=== PATIENT | female | born 1945 | race Caucasian/White ===

== ENCOUNTER → 2021-01-23 12:23 | Outpatient (CLI) | payer MEDICARE, SELFPAY ==
--- NOTE | ~2021-01-23 | MM_ITS ---
EXAMINATION: MM screening noé BI w kale HISTORY: Screening mammogram TECHNIQUE: Craniocaudal and mediolateral oblique 3-D tomosynthesis images were obtained and synthetic 2-D images were generated. CAD analysis was submitted and interpreted. COMPARISON: 08/03/2018, 07/25/2016, 07/23/2015 bilateral digital screening mammogram examinations BREAST PARENCHYMAL COMPOSITION: The breasts are heterogeneously dense, which may obscure small masses . FINDINGS: There is no evidence of suspicious mass, calcification, or architectural distortion to sugg est malignancy in either breast. There has been no suspicious interval change. IMPRESSION: 1. No mammographic evidence of malignancy. 2. Recommend routine screening mammography in one year. BI-RADS Category 1: Negative Reviewed, dictated and finalized at location A.
--- NOTE | ~2021-01-23 | DEXA_ITS ---
Bone Density Report Name: Mary Jane Malhotra Age: 75 Sex: Female Ethnicity: White Date of : 1945 Indication: postmenopausal osteoporosis; parental hip fracture; height loss; prior fracture; hysterectomy; Referring Provider: Kayli Ha Study: Bone densitometry was performed. Exam Date: January 23, 2021 Accession number: [id number] Bone Density: Region BMD T-score Z-score Classification AP Spine (L1-L4) 0.813 -2.1 0.2 Osteopenia Femoral Neck (Left) 0.544 -2.8 -0.7 Osteoporosis Total Hip (Left) 0.619 -2.6 -0.9 Osteoporosis Femoral Neck (Right) 0.515 -3.0 -1.0 Osteoporosis Total Hip (Right) 0.569 -3.1 -1.3 Osteoporosis Total Hip Mean 0.594 -2.9 -1.1 Osteoporosis World Health Organization criteria for BMD impression classify patients as: Normal (T-score at or above -1.0), Osteopenia (T-score between -1.0 and -2.5), or Osteoporosis (T-score at or below -2.5). 10-year Fracture Risk: FRAX not reported because: Some T-score for Spine Total or Hip Total or Femoral Neck at or below -2.5 Previous Exams: Region Exam Age BMD T-score BMD Change BMD Change Date g/cm2 vs Baseline vs Previous AP Spine(L1-L4) 01/23/2021 75 0.813 -2.1 0.028* 0.007 08/03/2018 73 0.806 -2.2 0.020 -0.017 07/25/2016 71 0.823 -2.0 0.037* 0.037* 10/06/2013 68 0.786 -2.4 Total Hip(Left) 01/23/2021 75 0.619 -2.6 0.003 0.008 08/03/2018 73 0.611 -2.7 -0.005 -0.039* 07/25/2016 71 0.650 -2.4 0.034* 0.034* 10/06/2013 68 0.616 -2.7 Total Hip(Right) 01/23/2021 75 0.569 -3.1 -0.049* -0.027 08/03/2018 73 0.596 -2.8 -0.022 -0.022 07/25/2016 71 0.618 -2.7 -0.001 -0.001 10/06/2013 68 0.619 -2.7 *Denotes significance at 95% confidence level, LSC for AP Spine = 0.022 g/cm2, LSC for Total Hip = 0.027 g/cm2 Clinical Information Provided by Patient: Has had a low trauma fracture Parent has had a hip fracture Has used the following medications: Vitamin D, Calcium Has the following medical conditions: Hysterectomy Patient maximum height was 66 Menopause Age: 53 No regular weight bearing exercise Drinks caffeinated beverages Onset of menses at age 13 Number of children 2 Impression: The patient has established osteoporosis, based on the Right Total Hip T-score and the existence of a prior
== END ==
PROVIDERS: Visit Provider Nurse Practitioner
DX: Z12.31 Encounter for screening mammogram for malignant neoplasm of breast (principal); Z78.0 Asymptomatic menopausal state; M85.88 Other specified disorders of bone density and structure, other site; M81.0 Age-related osteoporosis without current pathological fracture
CPT/HCPCS: 77063; 77067; 77080

== ENCOUNTER → 2022-05-20 13:21 | Outpatient (CLI) | payer MEDICARE, SELFPAY ==
--- NOTE | ~2022-05-20 | MM_ITS ---
EXAMINATION: MM screening noé BI w kale HISTORY: Screening mammogram, family history of breast cancer in her mother and daughter. TECHNIQUE: Craniocaudal and mediolateral oblique 3-D tomosynthesis images were obtained and synthetic 2-D images were generated. CAD analysis was submitted and interpreted. COMPARISON: 01/23/2021, 08/03/2018, 07/25/2016 BREAST PARENCHYMAL COMPOSITION: The breasts are heterogeneously dense, which may obscure small masses . FINDINGS: No suspicious mass, calcification, or architectural distortion are identified in either raquel ast to suggest malignancy. There has been no suspicious interval change. IMPRESSION: 1. No mammographic evidence of malignancy. 2. Recommend routine screening mammography in one year. BI-RADS Category 1: Negative Reviewed, dictated and finalized at location A.
== END ==
PROVIDERS: PCP Nurse Practitioner; Visit Provider Nurse Practitioner
DX: Z12.31 Encounter for screening mammogram for malignant neoplasm of breast (principal)
CPT/HCPCS: 77063; 77067

== ENCOUNTER → 2023-07-01 10:08 | Outpatient (CLI) | payer MEDICARE, SELFPAY ==
--- NOTE | ~2023-07-01 | MM_ITS ---
EXAMINATION: MM screening noé BI w kale HISTORY: Screening mammogram, family history of breast cancer in her mother and daughter. TECHNIQUE: Craniocaudal and mediolateral oblique 3-D tomosynthesis images were obtained and synthetic 2-D images were generated. CAD analysis was submitted and interpreted. COMPARISON: Prior mammograms dating back to 07/23/2015 BREAST PARENCHYMAL COMPOSITION: The breasts are heterogeneously dense, which may obscure small masses . FINDINGS: No suspicious mass, calcification, or architectural distortion are identified in either raquel ast to suggest malignancy. There has been no suspicious interval change. IMPRESSION: 1. No mammographic evidence of malignancy. 2. Recommend routine screening mammography in one year. BI-RADS Category 1: Negative Reviewed, dictated and finalized at location A. ER OPERATOR
== END ==
PROVIDERS: PCP Nurse Practitioner; Visit Provider Nurse Practitioner
DX: Z12.31 Encounter for screening mammogram for malignant neoplasm of breast (principal)
CPT/HCPCS: 77063; 77067

== ENCOUNTER 2023-09-21 10:43 | Inpatient (IN) | payer MEDICARE, SELFPAY ==
--- NOTE | ~2023-09-21 | XR_ITS ---
EXAMINATION: XR surgery orthopedic DATE: 09/22/2023 14:55 INDICATION: Intraoperative imaging during right hip bipolar type hemiarthroplasty placement. TECHNIQUE: 4 frontal. Images were obtained during procedure performed by Dr. Herbert. Radiologist wa s not present during the procedure. COMPARISON: Right hip and pelvis radiographs dated 09/21/2023 FINDINGS: Initial image demonstrates resection of the fractured right femoral head and neck and placement of a femoral broach is in expected position within the remaining proximal right femur. Subsequent images d emonstrate a placement of a trial femoral head component as well as a cerclage wires about the intrat rochanteric femur. Subsequent image demonstrates replacement of the broach with a cemented bipolar ty pe right hip hemiarthroplasty which is near-anatomic alignment on the final image. No fractures ident ified. Portions of the pelvis are obscured by broach. Soft tissue lucency about the proximal right femur consistent with postoperative gas. IMPRESSION: 1. Bipolar type right hip hemiarthroplasty in expected position. Reviewed, dictated and finalized at location A. E REFINISHER
--- NOTE | ~2023-09-21 | XR_ITS ---
EXAMINATION: XR chest 1V portable DATE: 09/21/2023 13:14 INDICATION: Fall with hip fracture. Preoperative evaluation. TECHNIQUE: frontal view of the chest was obtained. COMPARISON: None FINDINGS: The lungs are clear with no focal airspace opacities, pulmonary edema, pleural effusion or pneumothor ax. The cardiomediastinal silhouette is normal. Mild to moderate osteoarthritis at the bilateral shou lders. IMPRESSION: 1. No acute cardiopulmonary disease. Reviewed, dictated and finalized at location A. RIKE HAMMER OPERATOR
--- NOTE | ~2023-09-21 | XR_ITS ---
EXAMINATION: XR hip RT 2V w AP pelvis INDICATION: Right hip pain, initial encounter TECHNIQUE: AP view the pelvis and two views of the right hip are obtained. COMPARISON: None available FINDINGS: There is an acute, traumatic, closed, subcapital fracture of the right femoral neck. The fe moral head is well-seated in the acetabulum. No additional fracture is identified. There is mild oste oarthritis of the hips. IMPRESSION: 1. Acute subcapital right femoral neck fracture. Reviewed, dictated and finalized at location L. ARE SUPERVISOR
[2023-09-21 10:47] VITALS: BP 148/50; PULSE 85; RESP 16; TEMP 36.9; O2SAT 97
--- NOTE | 2023-09-21 13:04 | ECG_ITS ---
Measurements Intervals [place] Rate: 81 P: 66 DE: 177 QRS: 9 QRSD: 94 T: 62 QT: 348 QTc: 404 Interpretive Statements SINUS RHYTHM NO PREVIOUS ECG AVAILABLE FOR COMPARISON Electronically Signed On 09-21-2023 13:53:23 FAMILY LIFE EDUCATOR by Ciro Wahl M.D.
--- NOTE | 2023-09-21 13:23 | ED.FALL ---
HPI - Fall General Chief Complaint: Fall Stated Complaint: Fall Time Seen by Provider: 09/21/23 11:21 History of Present Illness HPI Narrative: 78-year-old female presented emergency department for evaluation after having a ground level fall. Patient was walking her dog when the dog pulled the leash causing her to fall onto her right side. Patient did not strike her head did not have any loss of consciousness. Patient denies any other pain or injury other than her right hip. Patient did attempt to ambulate and had increased pain of the right hip. While resting in the bed with her leg elevated patient denies any pain and declined any medications for pain control. Patient denies any significant past medical history and is not taking any blood thinners. Patient does report her history of osteoporosis. Related Data Home Medications Medication Instructions Recorded Confirmed sertraline 50 mg tablet 50 mg PO DAILY 09/21/23 09/21/23 Allergies Allergy/AdvReac Type Severity Reaction Status Date / Time No Known Allergies Allergy Verified 09/21/23 11:16 Review of Systems Review of Systems: All systems reviewed & are unremarkable except as noted in HPI and below PMFSH Past Medical History Medical History (Updated 09/21/23 @ 19:29 by Genny Bentley APRN) Age related osteoporosis Anxiety GERD (gastroesophageal reflux disease) Hyperlipidemia Postmenopausal Vitamin D deficiency Family History Family History Mother Patient's mother is Father Patient's father is Social History Social History Smoking status: Never smoker Alcohol intake: current Drinks per week: 2 Substance use: never Do You Feel Safe in your Home?: Yes Lack of Transportation: No Lack of Food: Never True Current Housing: I Have Housing Concerned About Future Housing: No Difficulty Paying Gas/Electric Bills: No Difficulty Paying for Meds: No Currently Unemployed: No Education: High School Diploma/GED Difficulty w/ Childcare or Family Care: No Spiritual care concerns: No Exam Narrative: APPEARANCE: Well appearing, no pain, no distress, well-nourished. HEAD: normocephalic, atraumatic. EYES: PERRLA/EOMI, conjunctivae clear. NOSE: Normal no drainage EARS:TMS clear with good light reflex. THROAT: Pharynx clear, no exudate. NECK: Supple. No adenopathy, no masses. RESPIRATORY: Airway patent, respirations nonlabored. Clear to auscultation bilaterally, no rales, rhonchi, wheezing. CARDIOVASCULAR: Regular rate and rhythm without murmurs rubs or gallops. ABDOMINAL: Soft, nontender, nondistended, normal bowel sounds MUSCULOSKELETAL: Right hip tenderness to palpation, neurovascularly intact. NEURO: Alert. Cranial nerves II through XII intact. Grossly intact SKIN: Warm, dry. Normal Color Course Course Emergency Course: 78-year-old female presenting ED for evaluation for right hip pain after having a ground level fall. X-ray of right hip does show acute subcapital right femoral neck fracture. I discussed case with Dr. Herbert and he initially attempted to take the patient to the OR today but OR was full. Dr Herbert was willing to admit the patient as primary and hospitalist will be on as consult. Patient and family were updated on the results the workup, diagnosis the fracture plan for admission anticipated surgery. All questions concerns were addressed. Vital Signs Vital signs: Vital Signs Temperature 98.5 F 09/21/23 10:47 Pulse Rate 85 09/21/23 10:47 Respiratory Rate 16 09/21/23 10:47 Blood Pressure 148/50 H 09/21/23 10:47 Pulse Oximetry 97 09/21/23 10:47 Oxygen Delivery Room Air 09/21/23 10:47 Temperature 99.4 F 09/21/23 16:09 Pulse Rate 90 09/21/23 16:09 Respiratory Rate 19 09/21/23 16:09 Blood Pressure 159/70 H 09/21/23
[2023-09-21 13:27] VITALS: BP 152/70; PULSE 85; RESP 18; O2SAT 99
[2023-09-21 13:34] LABS: Basophils Absolute Auto 0.1 K/mm3 (0.0-0.1); Basophils Percent Auto 0.4 % (0.2-1.2); Eosinophils Absolute Auto 0.1 K/mm3 (0-0.3); Eosinophils Percent Auto 0.4 % (0-4.4); Hematocrit 42.3 % (37.0-47.0); Hemoglobin 13.7 g/dL (12.0-15.0); Immature Granulocyte Absolute 0.07 K/mm3 (0.00-0.031); Immature Granulocyte Percent A 0.5 % (0-0.5); Lymphocytes Absolute Auto 1.12 K/mm3 (0.9-3.2); Lymphocytes Percent Auto 7.3 % (18.3-44.2); Mean Corpuscular HGB Conc 32.4 g/dl (32-36); Mean Corpuscular Hemoglobin 31.4 pg (26-34); Mean Platelet Volume 9.8 fl (7.4-10.4); Monocytes Absolute Auto 0.9 K/mm3 (0.1-0.6); Monocytes Percent Auto 5.7 % (2.6-8.5); Neutrophils Absolute Auto 13.2 K/mm3 (1.3-6.7); Neutrophils Percent Auto 85.7 % (45.5-73.1); Platelet Count Result 285 k/mm3 (150-375); Red Blood Count 4.36 M/mm3 (4.2-5.4); Red Cell Distribution Width 15.3 % (11.5-14.5); White Blood Count 15.3 K/mm3 (4.5-10.0)
--- NOTE | 2023-09-21 13:34 | PM.IMHP ---
H&P: HPI History of Present Illness Date/Time: 09/21/23 13:34 Chief Complaint: Patient presents hip pain right status post fall with a femoral neck fracture. Review of Systems Musculoskeletal: Musculoskeletal: Reports arthralgias and Reports joint swelling PMFSH Past Medical History Medical History Age related osteoporosis Family History Family History Mother Patient's mother is Father Patient's father is Social History Social History (Updated 03/09/23 @ 09:21 by Neva Correa MA) Smoking status: Never smoker Alcohol intake: current Lack of Transportation: No Lack of Food: Never True Current Housing: I Have Housing Concerned About Future Housing: No Difficulty Paying Gas/Electric Bills: No Difficulty Paying for Meds: No Currently Unemployed: No Education: High School Diploma/GED Difficulty w/ Childcare or Family Care: No Meds Home Medications and Allergies Home Medications Medication Instructions Recorded Confirmed Type sertraline 50 mg tablet 50 mg PO DAILY 09/21/23 09/21/23 History Allergies Allergy/AdvReac Type Severity Reaction Status Date / Time No Known Allergies Allergy Verified 09/21/23 11:16 Vital Signs Vital Signs - 24 hr 09/21/23 10:47 09/21/23 13:27 Temperature 98.5 F Pulse Rate 85 85 Respiratory Rate 16 18 Blood Pressure 148/50 H 152/70 H Pulse Oximetry 97 99 Oxygen Delivery Room Air Exam Narrative: Patient can wiggle her toes has pain with any manipulation of her right hip. The leg is short and externally rotated. Radiology Reports: Comments: Patient: Mary Jane Malhotra : 1945 MR#: [id number] Age: 78 Loc: [facility]? ? ADM Date: 09/21/23Attending Dr: Ordering Physician: Thomas Travis MD Date of Service: 09/21/23 Procedure(s): XR hip RT 2V w AP pelvis Accession Number(s): [id number] cc: Thomas Travis MD; Kayli Ha APRN~ EXAMINATION: XR hip RT 2V w AP pelvis INDICATION: Right hip pain, initial encounter TECHNIQUE: AP view the pelvis and two views of the right hip are obtained. COMPARISON: None available FINDINGS: There is an acute, traumatic, closed, subcapital fracture of the right femoral neck. The femoral head is well-seated in the acetabulum. No additional fracture is identified. There is mild osteoarthritis of the hips. IMPRESSION: 1. Acute subcapital right femoral neck fracture. Reviewed, dictated and finalized at location L. OMER ACCOUNT COORDINATOR Hip and Pelvis X-Ray 09/21/23 H&P: Results Labs Labs: Short CBC 09/21/23 Range/Units 13:26 WBC 15.3 H (4.5-10.0) K/mm3 Hgb 13.7 (12.0-15.0) g/dL Hct 42.3 (37.0-47.0) % Plt Count 285 (150-375) k/mm3 Assessment and Plan Assessment and plan (1) Closed fracture of neck of right femur: Code(s): S72.001A - Fracture of unspecified part of neck of right femur, initial encounter for closed fracture Status: Acute Assessment and Plan: Patient is a femoral neck fracture right. There is enough shortening and angulation that I think pinning it would have a high probability of failure. Recommended bipolar endoprosthetic replacement. Will proceed per her request discussed risks benefits limitations and alternatives in detail. [facility] [place] [facility] [place]P [facility] H&P [facility] H&P: [id number] Initial Admit Mod
[2023-09-21 13:43] LABS: Alanine Aminotransferase 24 U/L (6-35); Albumin Level 4.6 g/dL (3.5-5.1); Alkaline Phosphatase 104 U/L (38-126); Anion Gap 5 mmol/L (8-16); Aspartate Amino Transferase 38 U/L (14-36); Bilirubin,Total 0.6 mg/dL (0.2-1.3); Blood Urea Nitrogen 16 mg/dL (7-17); Calcium 9.3 mg/dL (8.4-10.2); Carbon Dioxide 30 mmol/L (22-30); Chloride 102 mmol/L (98-107); Estimated Glomerular Filt Rate > 60; Glucose 110 mg/dL (65-110); Partial Thromboplastin Time 30.3 SECONDS (22.3-36.8); Potassium 3.6 mmol/L (3.4-5.0); Prothrombin Time 13.7 Seconds (11.1-14.7); Sodium 137 mmol/L (137-145)
[2023-09-21] MEDS: fentaNYL CITRATE INJ (*CRX) 100 MCG/2 ML VIAL 50 MCG IV PUSH (14:22)
[2023-09-21 15:34] VITALS: BP 139/69; PULSE 83; RESP 19; O2SAT 98
--- NOTE | 2023-09-21 16:04 | ADMGEN ---
This patient, Mary Jane Malhotra, was admitted to Virtual Bed 3rd Floor-1. Patient/family oriented to hospital policies and general routines including ID bracelet, bed and alarms, visiting hours, pain management, procedures, bathroom and other care routines, personal items, smoking policy, room service/diet, and visiting hours. Information on how to activate the Rapid Response Team has been discussed. Patient/Family are encouraged to report perceived risks to care and to ask questions if they do not understand what they are told or what they should do.
[2023-09-21 16:09] VITALS: BP 159/70; PULSE 90; RESP 19; TEMP 37.4; O2SAT 96
[2023-09-21] MEDS: HYDROcodone/acetaminophen (*CRX) 5-325 MG TABLET 2 TAB PO (17:08)
[2023-09-21] MEDS: SENNA/DOCUSATE SODIUM TABLET 2 TAB PO (17:12)
--- NOTE | 2023-09-21 19:24 | PM.IMCN ---
Assessment and Plan Assessment and plan (1) Closed fracture of neck of right femur: Code(s): S72.001A - Fracture of unspecified part of neck of right femur, initial encounter for closed fracture Status: Acute Assessment and Plan: Admitted here for surgical fixation of R subcapital fracture. Primary management by Keon ZHU. Plan for surgery tomorrow, NPO at midnight. -Bed rest -apply gel pads -use IS -neurovasc checks - see order for intervals -SCDs -urinary catheter placed -NPO at midnight -pain management -zofran PRN -monitor labs in AM - CBC and BMP. Add UA w/reflex. -bowel regimen: docusate/senna, polyethylene glycol -maintenance fluids: NS 125 mL/hr -muscle spasms - Valium 1 mg PO x1 at 10:00pm Plan Home Meds/Chronic Conditions -hold home sertraline Diet: Regular, NPO at midnight GI Prophylaxis: Famotidine DVT Prophylaxis: SCDs Lines: pIV Code Status: Full Code HPI Date of Consult Consult date: 09/21/23 Requesting Physician: Jim Herbert MD Primary Care Provider: Kayli Ha NP Consult Narrative Reason for consult: Medical Managment Narrative: Mary Jane Malhotra is a 78 year old female who presented to the ER earlier today for evaluation post-ground level fall with PMH of osteoporosis, anxiety, GERD, and vitamin-D deficiency. Patient reported she was walking her dog when her son's dog (jeffrey) pulled on the leash causing her to lose her balance. Patient fell onto her right side, no head strike, and no loss of consciousness. Nonambulatory post fall due to pain in her right hip. Denies any recent previous falls. Does not require an assistive device. Not currently on a blood thinner. No significant past medical history, does have osteoporosis. No numbness or tingling. Is currently experiencing some moderate muscle spasms in her bilateral calves. No other complaints at this time and is tolerating movement well. Initial vital signs at presentation: 99.4 F, HR 83, RR 19, 139/69, 98% on RA. Workup showed mild leukocytosis with white count of 15.3, creatinine 0.6, BUN 16, gap 5, and AST mildly elevated at 38. XR of right hip showed acute subcapital right femoral neck fracture. CXR showed no acute cardiopulmonary disease. Review of Systems Review of Systems: All systems reviewed & are unremarkable except as noted in HPI and below PMFSH Past Medical History Medical History Age related osteoporosis Anxiety GERD (gastroesophageal reflux disease) Postmenopausal Vitamin D deficiency Surgical History Surgical History History of total hysterectomy Family History Family History Mother Patient's mother is Father Patient's father is Social History Social History Smoking status: Never smoker Alcohol intake: current Drinks per week: 2 Substance use: never Do You Feel Safe in your Home?: Yes Lack of Transportation: No Lack of Food: Never True Current Housing: I Have Housing Concerned About Future Housing: No Difficulty Paying Gas/Electric Bills: No Difficulty Paying for Meds: No Currently Unemployed: No Education: High School Diploma/GED Difficulty w/ Childcare or Family Care: No Spiritual care concerns: No Meds Home Medications and Allergies Home Medications Medication Instructions Recorded Confirmed Type sertraline 50 mg tablet 50 mg PO DAILY 09/21/23 09/21/23 History Allergies Allergy/AdvReac Type Severity Reaction Status Date / Time No Known Allergies Allergy Verified 09/21/23 11:16 Vital Signs Vital Signs - 24 hr 09/21/23 10:47 09/21/23 13:27 09/21/23 15:34 Temperature 98.5 F Pulse Rate 85 85 83 Respiratory Rate 16 18 19 Bl
[2023-09-21] MEDS: FAMOTIDINE 20 MG TABLET PO (20:39)
[2023-09-21 20:47] LABS: Appearance Urine Clear (Clear); Bilirubin Urine Negative (Negative); Blood Urine Negative (Negative); Color Urine Yellow (Yellow); Glucose Urine UA Negative (Negative); Ketones Urine Trace mg/dL (Negative); Leukocyte Esterase Ur Negative LEU/UL (Negative); Nitrate Urine Negative (Negative); Protein Urine Negative (Negative); Specific Grav Ur 1.011 (1.001-1.035); Urobilinogen Urine 0.2 mg/dL (<2.0)
[2023-09-21 20:50] LABS: Add Urine Microscopic? NO
[2023-09-21] MEDS: HYDROcodone/acetaminophen (*CRX) 5-325 MG TABLET 1 TAB PO (21:09)
[2023-09-21] MEDS: diazePAM (*CRX) 2 MG TABLET 1 MG PO (21:09)
[2023-09-21 23:26] VITALS: BP 136/59; PULSE 86; RESP 20; TEMP 36.8; O2SAT 98
[2023-09-22] VITALS (17 sets, daily range): BP systolic 113–174; BP diastolic 57–104; PULSE 77–106; RESP 12–20; TEMP 36.3–37.7; O2SAT 86–100
[2023-09-22] MEDS: fentaNYL CITRATE INJ (*CRX) 100 MCG/2 ML VIAL 50 MCG IV PUSH ×2 (04:43→08:39)
[2023-09-22 06:12] LABS: Basophils Absolute Auto 0.1 K/mm3 (0.0-0.1); Basophils Percent Auto 0.6 % (0.2-1.2); Eosinophils Absolute Auto 0.3 K/mm3 (0-0.3); Eosinophils Percent Auto 3.1 % (0-4.4); Hematocrit 37.9 % (37.0-47.0); Hemoglobin 12.5 g/dL (12.0-15.0); Immature Granulocyte Absolute 0.04 K/mm3 (0.00-0.031); Immature Granulocyte Percent A 0.4 % (0-0.5); Lymphocytes Absolute Auto 1.39 K/mm3 (0.9-3.2); Lymphocytes Percent Auto 12.7 % (18.3-44.2); Mean Corpuscular Hemoglobin 31.7 pg (26-34); Mean Corpuscular Volume 96.2 fl (80-100); Mean Platelet Volume 10.2 fl (7.4-10.4); Neutrophils Absolute Auto 8.2 K/mm3 (1.3-6.7); Neutrophils Percent Auto 74.2 % (45.5-73.1); Platelet Count Result 235 k/mm3 (150-375); Red Blood Count 3.94 M/mm3 (4.2-5.4); Red Cell Distribution Width 15.2 % (11.5-14.5)
[2023-09-22 06:23] LABS: Anion Gap 4 mmol/L (8-16); Blood Urea Nitrogen 17 mg/dL (7-17); Calcium 8.6 mg/dL (8.4-10.2); Carbon Dioxide 28 mmol/L (22-30); Chloride 103 mmol/L (98-107); Estimated Glomerular Filt Rate > 60; Glucose 106 mg/dL (65-110); Potassium 3.5 mmol/L (3.4-5.0); Sodium 135 mmol/L (137-145)
--- NOTE | 2023-09-22 08:26 | PCOTNOTE ---
Pt. to have surgery for fx. today. Pt. to be seen for therapy services when medically appropriate s/p.
--- NOTE | 2023-09-22 11:45 | PC.NURSE ---
Patient off of unit for surgery
--- NOTE | 2023-09-22 12:13 | WPDHPUPDATE1 ---
History and Physical Update Update Date/Time: 09/22/23 12:13 History and Physical has been reviewed, including an updated exam of the patient. There are NO changes in the patient's condition. Risks, benefits, and alternatives have been discussed and questions answered. Patient agrees to proceed with procedure.
--- NOTE | 2023-09-22 12:19 | WPDANESEPPF ---
Anes - Initial Pre Proc Eval Procedure: Operation Date: 09/22/23 13:30 Proposed Procedures p Right Bipolar Hip Replacement - Jim Herbert MD Date/Time: 09/22/23 12:19 Surgeon: Jim Herbert MD Pre Op Diagnosis: Femoral Neck Fracture Right Patient Data Age: 78 Gender: F Height: Weight: 53.6 kg Last Vital Signs Temp 37.2 C 09/22/23 09:08 Pulse 85 09/22/23 09:08 Resp 16 09/22/23 09:08 BP 113/59 L 09/22/23 09:08 Pulse Ox 97 09/22/23 09:08 O2 Del Method Room Air 09/22/23 08:35 Allergies Allergy/AdvReac Type Severity Reaction Status Date / Time No Known Allergies Allergy Verified 09/21/23 11:16 Home Medications Medication Instructions Recorded Confirmed Type sertraline 50 mg tablet 50 mg PO DAILY 09/21/23 09/21/23 History Laboratory Tests 09/21/23 09/21/23 09/22/23 13:26 20:29 05:47 WBC 15.3 H K/mm3 11.0 H K/mm3 (4.5-10.0) (4.5-10.0) RBC 4.36 M/mm3 3.94 L M/mm3 (4.2-5.4) (4.2-5.4) Hgb 13.7 g/dL 12.5 g/dL (12.0-15.0) (12.0-15.0) Hct 42.3 % 37.9 % (37.0-47.0) (37.0-47.0) MCV 97.0 fl 96.2 fl (80-100) (80-100) MCH 31.4 pg 31.7 pg (26-34) (26-34) MCHC 32.4 g/dl 33.0 g/dl (32-36) (32-36) RDW 15.3 H % 15.2 H % (11.5-14.5) (11.5-14.5) Plt Count 285 k/mm3 235 k/mm3 (150-375) (150-375) MPV 9.8 fl 10.2 fl (7.4-10.4) (7.4-10.4) Immature Gran % (Auto) 0.5 % 0.4 % (0-0.5) (0-0.5) Neut % (Auto) 85.7 H % 74.2 H % (45.5-73.1) (45.5-73.1) Lymph % (Auto) 7.3 L % 12.7 L % (18.3-44.2) (18.3-44.2) [place] % (Auto) 5.7 % 9.0 H % (2.6-8.5) (2.6-8.5) Eos % (Auto) 0.4 % 3.1 % (0-4.4) (0-4.4) Baso % (Auto) 0.4 % 0.6 % (0.2-1.2) (0.2-1.2) Lymph # (Auto) 1.12 K/mm3 1.39 K/mm3 (0.9-3.2) (0.9-3.2) [place] # (Auto) 0.9 H K/mm3 1.0 H K/mm3 (0.1-0.6) (0.1-0.6) Eos # (Auto) 0.1 K/mm3 0.3 K/mm3 (0-0.3) (0-0.3) Baso # (Auto) 0.1 K/mm3 0.1 K/mm3 (0.0-0.1) (0.0-0.1) Abs Immat Gran (auto) 0.07 H K/mm3 0.04 H K/mm3 (0.00-0.031) (0.00-0.031) Absolute Neuts (auto) 13.2 H K/mm3 8.2 H K/mm3 (1.3-6.7) (1.3-6.7) Absolute Nucleated RBC 0.0 K/mm3 0.0 K/mm3 (0.0-0.012) (0.0-0.012) Nucleated RBC % 0.0 % 0.0 % (0.0-0.2) (0.0-0.2) PT 13.7 Seconds (11.1-14.7) INR 1.0 APTT 30.3 SECONDS (22.3-36.8) Sodium 137 mmol/L 135 L mmol/L (137-145) (137-145) Potassium 3.6 mmol/L 3.5 mmol/L (3.4-5.0) (3.4-5.0) Chloride 102 mmol/L 103 mmol/L (98-107) (98-107) Carbon Dioxide 30 mmol/L 28 mmol/L (22-30) (22-30) Anion Gap 5 L mmol/L 4 L mmol/L (8-16) (8-16) BUN 16 mg/dL 17 mg/dL (7-17) (7-17) Creatinine 0.60 L mg/dL 0.60 L mg/dL (0.7-1.0) (0.7-1.0) Estim Creat Clear Calc Not Reportable Not Reportable Estimated GFR > 60 > 60 (59 - ) (59 - ) Glucose 110 mg/dL 106 mg/dL (65-110) (65-110) Calcium 9.3 mg/dL 8.6 mg/dL (8.4-10.2) (8.4-10.2) Total Bilirubin 0.6 mg/dL (0.2-1.3) AST 38 H U/L (14-36) ALT 24 U/L (6-35) Alkaline Phosphatase 104 U/L (38-126) Total Protein 8.0 g/dL (6.3-8.2) Albumin 4.6 g/dL (3.5-5.1) Urine Color Yellow (Yellow) Urine Appearance Clear (Clear) Urine pH 7.0 (5.0-9.0) Ur Specific [place] 1.011 (1.001-1.035) Urine Protein Negative mg/dL (Negative) Urine Glucose (UA) Negative mg/dL (Negative) Urine Ketones Trace H mg/dL (Negative) Ur Blood (Man) Negative (Negative) Urine Nitrate Negative (Negative) Urine Bilirubin Negative (Negative) Urine Urobilinogen 0.2 mg/dL (<2.0) Leukocyte E
[2023-09-22] MEDS: LACTATED RINGERS 1,000 ML 30 ML IV CONT ×2 (12:24→15:11)
[2023-09-22] MEDS: ceFAZolin SODIUM 1 GM VIAL IV PUSH (13:42)
[2023-09-22] MEDS: VANCOMYCIN 1,000 MG/NS 250 ML 1,000 MG/250 ML BAG 250 MG IVPB (13:44)
[2023-09-22] MEDS: GENTAMICIN BONE CEMENT REFOBACIN 1 EACH TOPICAL (13:59)
[2023-09-22] MEDS: EPINEPHrine HCL INJ 1 MG/ML AMPUL IRRIGATION (14:16)
--- NOTE | 2023-09-22 14:49 | W.PM.PROC2 ---
Procedure Note - Detailed Date of Procedure 09/22/23 Pre-op Diagnosis Femoral Neck Fracture Right Post-op Diagnosis Same Procedure Performed Right cemented bipolar Surgeon Jim Herbert MD Bereavement Program Coordinator Dylan Anesthesia General Indications Right femoral neck fracture Description of Procedure Patient brought to operating room $8. General anesthetic was administered. She was placed with the right hip up. Longitudinal incision made, dissection carried to the fascia. The fascia split and at this point a Simms approach was used the femoral neck was found to be broken and impacted back almost to the trochanter. The the hip was dislocated femoral head removed fingerbreadth above the lesser trochanter. The femur was to broached to accept a #9. A trial reduction the femoral neck rock. This was cable and then a #[address]. A -3 head was chosen and this gave excellent stability with the 47 millimeter bipolar. Femoral head measured 47 millimeters. The wound was then closed in a layered fashion with 5. Ethibond 2. Vicryl 2-0 Vicryl and loretta. Implants Biomet Estimated Blood Loss 400 Drains No Packing No Complications Other complications (Femoral Neck Cracked) Condition Stable Disposition PACU [facility] Billing Surgery - Charge Forward: Surgery Billing (Bipolar [place] [id number])
[2023-09-22] MEDS: fentaNYL CITRATE INJ (*CRX) 100 MCG/2 ML VIAL 25 MCG IV PUSH ×4 (15:27→15:43)
[2023-09-22] MEDS: HYDROmorphone HCL INJ (*CRX) 1 MG/ML SYR 0.25 MG IV PUSH ×4 (15:53→16:14)
--- NOTE | 2023-09-22 17:09 | PM.IMPN ---
Progress Note: A&P Assessment and Plan (1) Closed fracture of neck of right femur: Code(s): S72.001A - Fracture of unspecified part of neck of right femur, initial encounter for closed fracture Status: Acute Plan 78-year-old white female with a history of osteoporosis, anxiety, GERD, vitamin-D deficiency presents after ground level fall. Hospice team consulted for medical management. 09/22/2023 underwent bipolar cemented for right femoral neck fracture. Check labs in the morning. Continue Xarelto per surgery team for DVT prophylaxis. Advanced diet as tolerated. Leukocytosis is improving. Full code. Stable. Subjective Date/time seen: 09/22/23 17:09 Interval history: No acute overnight events. She is seen just postop for right femoral neck fracture repair. She complains of pain at the right hip and she is thirsty. Review of Systems Review of Systems: All systems reviewed & are unremarkable except as noted in HPI and below (Subjective) Exam Const: General: comfortable and no acute distress Neck: Neck: supple Resp: Effort & Inspection: normal respiratory effort Auscultation: clear to auscultation bilaterally Cardio: Rate: regular rate Rhythm: regular rhythm GI: GI Palp: Yes Soft to palpation and No Tenderness to palpation present (GI) Extrem: General: no edema Other: Pulses 2+ throughout. Objective Data Vital Signs Vital Signs: Vital Signs - 24 hr 09/21/23 20:00 09/21/23 23:26 09/22/23 03:26 Temperature 98.3 F 97.8 F Pulse Rate 86 88 Respiratory Rate 20 18 Blood Pressure 136/59 L 136/61 Pulse Oximetry 98 97 Oxygen Delivery Room Air Oxygen Flow Rate 09/22/23 07:00 09/22/23 09:08 09/22/23 08:35 Temperature 98.5 F 98.9 F Pulse Rate 77 85 Respiratory Rate 20 16 Blood Pressure 129/61 113/59 L Pulse Oximetry 99 97 Oxygen Delivery Room Air Oxygen Flow Rate 09/22/23 12:06 09/22/23 15:11 09/22/23 15:25 Temperature 99.8 F H 98.6 F Pulse Rate 81 90 86 Respiratory Rate 14 12 13 Blood Pressure 117/57 L 155/77 H 137/104 H Pulse Oximetry 99 100 97 Oxygen Delivery Room Air Simple Face Mask Room Air Oxygen Flow Rate 8 09/22/23 15:40 09/22/23 15:55 09/22/23 16:10 Temperature Pulse Rate 89 91 87 Respiratory Rate 15 17 18 Blood Pressure 155/78 H 174/70 H 147/75 H Pulse Oximetry 99 100 99 Oxygen Delivery Room Air Room Air Room Air Oxygen Flow Rate 09/22/23 16:25 09/22/23 16:53 Temperature 97.3 F L Pulse Rate 84 91 Respiratory Rate 17 16 Blood Pressure 155/74 H 143/76 H Pulse Oximetry 100 92 Oxygen Delivery Room Air Oxygen Flow Rate Intake/Output Intake/Output: Intake & Output 09/19/23 09/20/23 09/21/23 09/22/23 23:59 23:59 23:59 23:59 Intake Total 180 400 Balance 180 400 Meds/Results Medications: Active Medications Generic Name Dose Route Start Last Admin Trade Name Freq PRN Reason Stop Dose Admin Acetaminophen 650 mg 09/22/23 16:31 Acetaminophen 325 Mg Tablet PO Q6H PRN Mild Pain (1-3) or Fever Hydrocodone Bitart/Acetaminophen 2 tab 09/22/23 16:31 Hydrocodone/Acetaminophen (*Crx) 5-325 Mg Tablet PO Q6H PRN Pain Rated 7-10 Cyclobenzaprine HCl 10 mg 09/22/23 16:31 Cyclobenzaprine Hcl 10 Mg Tablet PO Q8H PRN Muscle Spasm Famotidine 20 mg 09/22/23 21:00 Famotidine 20 Mg Tablet PO Q12HR [facility] Hydroxyzine Pamoate 50 mg 09/22/23 16:31 Hydroxyzine Pamoate 25 Mg Capsule PO Q4H PRN Itching Cefazolin Sodium 1 gm in 50 mls @ 100 mls/hr 09/22/23 21:00 Ancef 1 Gm/Ns 50 Ml IVPB 09/23/23 13:29 Q8H ROSE Naloxone HCl 0.1 mg 09/22/23 16:31 Naloxone Hcl 0.4 Mg/Ml Vial IV PUSH Q2M PRN Opiate Reversal Polyethylene Glycol 17 gm 09/23/23 09:00 Polyethylene Glycol 3350 17 Gm Powd.Pack PO QAM [facility] Rivaroxaban 10 mg 09/22/23 17:00 Rivaroxaban 10 Mg Tablet PO DAILY@17 [facility] Senna/Docusate Sodium 2
[2023-09-22] MEDS: RIVAROXABAN 10 MG TABLET PO (18:17)
[2023-09-22] MEDS: SENNA/DOCUSATE SODIUM TABLET 2 TAB PO (18:17)
[2023-09-22] MEDS: HYDROcodone/acetaminophen (*CRX) 5-325 MG TABLET 2 TAB PO (18:18)
[2023-09-22] MEDS: MORPHINE SULFATE (*CRX) 2 MG/ML INJ IV PUSH (20:30)
[2023-09-22] MEDS: CYCLOBENZAPRINE HCL 10 MG TABLET PO (20:30)
[2023-09-22] MEDS: FAMOTIDINE 20 MG TABLET PO (20:30)
[2023-09-22] MEDS: ceFAZolin 1 GM/NS 50 ML 1 GM/50 ML BAG IVPB (20:31)
[2023-09-23] MEDS: HYDROcodone/acetaminophen (*CRX) 5-325 MG TABLET 2 TAB PO ×3 (00:23→13:12)
[2023-09-23 00:24] VITALS: BP 117/55; PULSE 100; RESP 20; TEMP 36.6; O2SAT 92
[2023-09-23] MEDS: MORPHINE SULFATE (*CRX) 2 MG/ML INJ IV PUSH (05:04)
[2023-09-23] MEDS: ceFAZolin 1 GM/NS 50 ML 1 GM/50 ML BAG IVPB ×2 (05:11→13:11)
[2023-09-23 05:48] VITALS: BP 143/67; PULSE 99; RESP 18; TEMP 36.7; O2SAT 96
[2023-09-23 06:19] LABS: Basophils Absolute Auto 0.1 K/mm3 (0.0-0.1); Basophils Percent Auto 0.6 % (0.2-1.2); Eosinophils Absolute Auto 0.1 K/mm3 (0-0.3); Eosinophils Percent Auto 0.8 % (0-4.4); Hematocrit 33.4 % (37.0-47.0); Hemoglobin 10.7 g/dL (12.0-15.0); Immature Granulocyte Absolute 0.03 K/mm3 (0.00-0.031); Immature Granulocyte Percent A 0.3 % (0-0.5); Lymphocytes Absolute Auto 1.39 K/mm3 (0.9-3.2); Lymphocytes Percent Auto 12.8 % (18.3-44.2); Mean Corpuscular Hemoglobin 31.7 pg (26-34); Mean Corpuscular Volume 98.8 fl (80-100); Mean Platelet Volume 10.5 fl (7.4-10.4); Monocytes Absolute Auto 1.3 K/mm3 (0.1-0.6); Monocytes Percent Auto 11.7 % (2.6-8.5); Neutrophils Absolute Auto 8.1 K/mm3 (1.3-6.7); Neutrophils Percent Auto 73.8 % (45.5-73.1); Platelet Count Result 236 k/mm3 (150-375); Red Blood Count 3.38 M/mm3 (4.2-5.4); Red Cell Distribution Width 15.4 % (11.5-14.5); White Blood Count 10.9 K/mm3 (4.5-10.0)
[2023-09-23 06:34] LABS: Anion Gap 7 mmol/L (8-16); Blood Urea Nitrogen 21 mg/dL (7-17); Calcium 8.4 mg/dL (8.4-10.2); Carbon Dioxide 26 mmol/L (22-30); Chloride 101 mmol/L (98-107); Estimated Glomerular Filt Rate > 60; Glucose 119 mg/dL (65-110); Potassium 3.8 mmol/L (3.4-5.0); Sodium 134 mmol/L (137-145)
--- NOTE | 2023-09-23 07:15 | PM.PNORT ---
Progress Note: A&P Assessment and Plan (1) Closed fracture of neck of right femur: Code(s): S72.001A - Fracture of unspecified part of neck of right femur, initial encounter for closed fracture Status: Acute Assessment and Plan: Patient is status post the bipolar for femoral neck fracture right. Overall she is doing well. Will mobilize her today and she feels up to it send her home. Subjective Subjective Date/Time Seen: 09/23/23 07:15 Post Op day: 1 Principal diagnosis: Right femoral neck fracture Interval history: Patient is day 1 status post bipolar for right femoral neck fracture. She has very osteoporotic bone. Review of Systems Review of Systems: All systems reviewed & are unremarkable except as noted in HPI and below (Subjective) Exam Narrative: On exam she can wiggle her toes she is able to get in and out of bed and walk with a walker. Incision is clean. Objective Data Vital Signs Vital Signs: Vital Signs - 24 hr 09/22/23 09:08 09/22/23 08:35 09/22/23 12:06 Temperature 98.9 F 99.8 F H Pulse Rate 85 81 Respiratory Rate 16 14 Blood Pressure 113/59 L 117/57 L Pulse Oximetry 97 99 Oxygen Delivery Room Air Room Air Oxygen Flow Rate 09/22/23 15:11 09/22/23 15:25 09/22/23 15:40 Temperature 98.6 F Pulse Rate 90 86 89 Respiratory Rate 12 13 15 Blood Pressure 155/77 H 137/104 H 155/78 H Pulse Oximetry 100 97 99 Oxygen Delivery Simple Face Mask Room Air Room Air Oxygen Flow Rate 8 09/22/23 15:55 09/22/23 16:10 09/22/23 16:25 Temperature Pulse Rate 91 87 84 Respiratory Rate 17 18 17 Blood Pressure 174/70 H 147/75 H 155/74 H Pulse Oximetry 100 99 100 Oxygen Delivery Room Air Room Air Room Air Oxygen Flow Rate 09/22/23 16:53 09/22/23 17:08 09/22/23 17:38 Temperature 97.3 F L 98.1 F 98.6 F Pulse Rate 91 99 94 Respiratory Rate 16 16 16 Blood Pressure 143/76 H 135/69 144/67 H Pulse Oximetry 92 100 100 Oxygen Delivery Oxygen Flow Rate 09/22/23 17:24 09/22/23 18:43 09/22/23 17:30 Temperature 98.2 F Pulse Rate 99 Respiratory Rate 18 Blood Pressure 130/70 Pulse Oximetry 86 L 99 97 Oxygen Delivery Room Air Nasal Cannula Oxygen Flow Rate 1 09/22/23 20:29 09/23/23 00:24 09/23/23 05:48 Temperature 98.1 F 97.9 F 98.1 F Pulse Rate 106 H 100 99 Respiratory Rate 18 20 18 Blood Pressure 133/101 H 117/55 L 143/67 H Pulse Oximetry 100 92 96 Oxygen Delivery Oxygen Flow Rate Intake/Output Intake/Output: Intake & Output 09/20/23 09/21/23 09/22/23 09/23/23 23:59 23:59 23:59 23:59 Intake Total 180 450 300 Balance 180 450 300 Meds/Results Medications: Active Medications Generic Name Dose Route Start Last Admin Trade Name Freq PRN Reason Stop Dose Admin Acetaminophen 650 mg 09/22/23 16:31 Acetaminophen 325 Mg Tablet PO Q6H PRN Mild Pain (1-3) or Fever Hydrocodone Bitart/Acetaminophen 2 tab 09/22/23 16:31 09/23/23 06:42 Hydrocodone/Acetaminophen (*Crx) 5-325 Mg Tablet PO 2 tab Q6H PRN Administration Pain Rated 4-6 Cyclobenzaprine HCl 10 mg 09/22/23 16:31 09/22/23 20:30 Cyclobenzaprine Hcl 10 Mg Tablet PO 10 mg Q8H PRN Administration Muscle Spasm Famotidine 20 mg 09/22/23 21:00 09/22/23 20:30 Famotidine 20 Mg Tablet PO 20 mg Q12HR ROSE Administration Hydroxyzine Pamoate 50 mg 09/22/23 16:31 Hydroxyzine Pamoate 25 Mg Capsule PO Q4H PRN Itching Cefazolin Sodium 1 gm in 50 mls @ 100 mls/hr 09/22/23 21:00 09/23/23 05:41 Ancef 1 Gm/Ns 50 Ml IVPB 09/23/23 13:29 Infused Q8H ROSE Infusion Morphine Sulfate 2 mg 09/22/23 20:04 09/23/23 05:04 Morphine Sulfate (*Crx) 2 Mg/Ml Inj IV PUSH 2 mg Q4H PRN Administration Pain Rated 7-10 Naloxone HCl 0.1 mg 09/22/23 16:31 Naloxone Hcl 0.4 Mg/Ml Vial IV PUSH Q2M PRN Opiate Reversal Polyethylene Glycol 17 gm 09/23/23 09:00 Polyethylene Glycol 3350 17 Gm
--- NOTE | 2023-09-23 07:17 | PM.DS ---
DS: Admitting Diagnosis Discharge Date Right femoral neck fracture. Admitting Diagnosis Right Femoral Neck Fracture DS: Discharge Diagnosis Discharge Diagnosis (1) Closed fracture of neck of right femur: Code(s): S72.001A - Fracture of unspecified part of neck of right femur, initial encounter for closed fracture Status: Acute Plan Right femoral neck fracture. Status post bipolar replacement. DS: Summary Hospital Course Hospital Course: Patient underwent bipolar endoprosthetic replacement. He was noted at the time of surgery that her bones are very osteoporotic. Femoral neck was cracked and psych able to it cemented the prosthesis. Time Spent with Patient Time attestation: Total time spent providing and/or coordinating discharge services: Exam Narrative: Patient's dressing is intact. She is able to wiggle her toes and with some help get in and out of bed. Eyes: General: appearance normal, both eyes and all related structures Neck: Neck: supple Resp: Effort & Inspection: normal respiratory effort Cardio: Rate: regular rate Rhythm: regular rhythm DS: Data Data Completed and Pending Labs on day of discharge: Labs from last 24 hours 09/23/23 05:56 WBC 10.9 H RBC 3.38 L Hgb 10.7 L Hct 33.4 L MCV 98.8 MCH 31.7 MCHC 32.0 RDW 15.4 H Plt Count 236 MPV 10.5 H Immature Gran % (Auto) 0.3 Neut % (Auto) 73.8 H Lymph % (Auto) 12.8 L [place] % (Auto) 11.7 H Eos % (Auto) 0.8 Baso % (Auto) 0.6 Lymph # (Auto) 1.39 [place] # (Auto) 1.3 H Eos # (Auto) 0.1 Baso # (Auto) 0.1 Abs Immat Gran (auto) 0.03 Absolute Neuts (auto) 8.1 H Absolute Nucleated RBC 0.0 Nucleated RBC % 0.0 Sodium 134 L Potassium 3.8 Chloride 101 Carbon Dioxide 26 Anion Gap 7 L BUN 21 H Creatinine 0.60 L Estim Creat Clear Calc Not Reportable Estimated GFR > 60 Glucose 119 H Calcium 8.4 Discharge Plan Discharge Attending physician on discharge: Jim Herbert Consulting providers: Jim Herbert; Ricky Engle Discharging Clinician: Jim Herbert Anticipated Discharge Date/Time: 09/23/23 14:19 Patient Disposition: Home Health Service Activity: no straining Diet: regular Wound Care Instructions: keep dressing dry Discharge Instructions: Dr. Jim Herbert M.D [address] [place] [id number] POST-OPERATIVE DISCHARGE INSTRUCTIONS Bipolar Replacement 1. Move toes/feet up and down every hour while awake. 2. Be up walking as desired. 3. Use walker marketing analytics manager if instructed to use walker marketing analytics manager.When you are allowed to use the cane, use the cane in the opposite hand. 4. When resting, do not rest in the chair. Rather, lie on your back, with back flat, and the leg elevated above heart to minimize swelling. You may put a pillow under your head. Do not rest in a chair. Resting in the chair results in swelling in the leg. Significant swelling could indicate a blood clot and if this occurs, call the office (or go to the ER) to have a venous ultrasound performed. Its ok to sit in the chair to eat and use the toilet and to receive a guest but sitting in a chair will cause your leg to swell. so try to minimize sitting in a chair. 5. Follow weight bearing status as instructed: Patient Instructions: Antibiotic Form Stand Alone Forms: General Discharge Information Follow-up/Referrals: Jim Herbert MD [Physician] - Discharge Medications: New hydrocodone-acetaminophen 7.5-325 mg tablet 1 tablet PO Q4H PRN (Reason: pain) Qty: 40 0RF Xarelto 10 mg tablet 10 mg PO DAILY Qty: 20 0RF Rx Instructions: for 35 days Continued sertraline 50 mg tablet 50 mg PO DAILY Date of admission: 09/21/23 13:41 Primary Care Provider: Kayli Ha Admitting Provider: Jim Herbert Attending physician on admission: Jim Herbert Condition: Stable
[2023-09-23] MEDS: FAMOTIDINE 20 MG TABLET PO (10:16)
[2023-09-23] MEDS: SENNA/DOCUSATE SODIUM TABLET 2 TAB PO (10:16)
[2023-09-23] MEDS: polyethylene glycoL 3350 17 GM POWD.PACK PO (10:16)
--- NOTE | 2023-09-23 14:07 | P.PNAN_ITS ---
Anes - Prog Note Post-Op Date/Time: 09/23/23 14:07 Cardiovascular status: normal Respiratory status: normal Airway patency: baseline Mental status: baseline Post-Op hydration status: normal Vital Signs: Last Vital Signs Temp 98.1 F 09/23/23 05:48 Pulse 99 09/23/23 05:48 Resp 18 09/23/23 05:48 BP 143/67 H 09/23/23 05:48 Pulse Ox 96 09/23/23 05:48 O2 Del Method Room Air 09/23/23 10:16 O2 Flow Rate 1 09/22/23 17:30 Pain Score (VAS): 6 I/O: Intake & Output 09/22/23 09/23/23 09/23/23 23:59 07:59 15:59 Intake Total 450 300 540 Balance 450 300 540 Laboratory Tests 09/23/23 05:56 09/23/23 05:56 09/23/23 05:56 WBC 10.9 H RBC 3.38 L Hgb 10.7 L Hct 33.4 L MCV 98.8 MCH 31.7 MCHC 32.0 RDW 15.4 H Plt Count 236 MPV 10.5 H Immature Gran % (Auto) 0.3 Neut % (Auto) 73.8 H Lymph % (Auto) 12.8 L [place] % (Auto) 11.7 H Eos % (Auto) 0.8 Baso % (Auto) 0.6 Lymph # (Auto) 1.39 [place] # (Auto) 1.3 H Eos # (Auto) 0.1 Baso # (Auto) 0.1 Abs Immat Gran (auto) 0.03 Absolute Neuts (auto) 8.1 H Absolute Nucleated RBC 0.0 Nucleated RBC % 0.0 Sodium 134 L Potassium 3.8 Chloride 101 Carbon Dioxide 26 Anion Gap 7 L BUN 21 H Creatinine 0.60 L Estim Creat Clear Calc Not Reportable Estimated GFR > 60 Glucose 119 H Calcium 8.4 Post-procedural complaints: other (complains of poor pain control in pacu. states better today) Patient Feedback: Patient satisfied with anesthetic care.
== END 2023-09-23 15:30 | disposition home health service (06) | DRG 522 ==
LOC: ANHED 13:41 → ANH3MEDSUR 14:55 → ANH3MED 16:05
PROVIDERS: Student in an Organized Health Care Education/Training Program; Admitting Provider Orthopaedic Surgery; Emergency Provider Emergency Medicine; PCP Nurse Practitioner; Visit Provider Orthopaedic Surgery
PROC: 0SRR0J9 Replacement of Right Hip Joint, Femoral Surface with Synthetic Substitute, Cemented, Open Approach (ICD-10-PCS; CPT 27125; principal; 2023-09-22 13:30)
DX: S72.011A Unspecified intracapsular fracture of right femur, initial encounter for closed fracture (principal); M96.89 Other intraoperative and postprocedural complications and disorders of the musculoskeletal system; Y83.8 Other surgical procedures as the cause of abnormal reaction of the patient, or of later complication, without mention of misadventure at the time of the procedure; W18.39XA Other fall on same level, initial encounter; M81.0 Age-related osteoporosis without current pathological fracture; K21.9 Gastro-esophageal reflux disease without esophagitis; F41.9 Anxiety disorder, unspecified; E78.5 Hyperlipidemia, unspecified; E55.9 Vitamin D deficiency, unspecified
CPT/HCPCS: 36415; 71045; 73502; 80048; 80053; 81003; 85025; 85610; 85730; 93005; 97110; 97116; 97161; 97165; 97530; 97535; 99199; 99285; A9270; C1713; C1776; J0171; J0690; J1100; J1170; J2001; J2270; J2405; J2704; J3010; J3370; J7120

== ENCOUNTER 2024-06-12 11:00 | Outpatient (CLI) | payer MEDICARE, SELFPAY ==
--- NOTE | ~2024-06-12 | DEXA_ITS ---
Bone Density Report Name: HEVER GARNETT Age: 78 Sex: Female Ethnicity: White Date of : 1945 Indication: postmenopausal; screening for osteoporosis; height loss; prior fracture; asthma or emphysema; hysterectomy; Referring Provider: STAR VASQUEZ Study: Bone densitometry was performed. Exam Date: June 12, 2024 Accession number: [id number] Bone Density: Region BMD T-score Z-score Classification AP Spine(L1-L4) 0.831 -2.0 0.6 Osteopenia Femoral Neck (Left) 0.520 -3.0 -0.8 Osteoporosis Total Hip (Left) 0.621 -2.6 -0.7 Osteoporosis World Health Organization criteria for BMD impression classify patients as: Normal (T-score at or above -1.0), Osteopenia (T-score between -1.0 and -2.5), or Osteoporosis (T-score at or below -2.5). 10-year Fracture Risk: FRAX not reported because: Some T-score for Spine Total or Hip Total or Femoral Neck at or below -2.5 Prior hip or vertebral fracture Clinical Information Provided by Patient: Have had a previous hip or vertebral fracture Has had a low trauma fracture Has used the following medications: Vitamin D, Calcium Has the following medical conditions: Asthma or Emphysema, Hysterectomy Patient maximum height was 66.0 No regular weight bearing exercise Drinks caffeinated beverages Onset of menses at age 13 Number of children 2 Impression: The patient has established osteoporosis, based on the Left Femoral Neck T-score and the existence of a prior fracture. The patient has risk factors, including: previous fracture. Discussion: HIGH RISK OF FRACTURE. BONE DENSITY IS UNDESIRABLY LOW AT ONE OR MORE SKELETAL SITES, CONSISTENT WITH POSTMENOPAUSAL OSTEOPOROSIS. This patient's lowest T-score, in a patient who has previously fractured, meets the World Health Organization's (WHO) criteria for severe osteoporosis. In untreated patients, the risk of osteoporotic fracture increases approximately two-fold for each 1.0 SD decrease in T-score. Low bone density is not the only risk factor for fracture; also consider factors such as patient's age, frailty or poor health, risk of falling, risk of injury, previous osteoporotic fracture, family history of osteoporosis, cigarette smoking, low body weight, etc. Not everyone with low bone mineral density has osteoporosis; osteomalacia and other metabolic bone disorders should also be considered. Patients who have osteoporosis should be evaluated for specific diseases and conditions (secondary causes) that may cause or contribute to bone loss. The [place] [employer]ocrinologists (AACE) and National Osteoporosis Foundation (NOF) recommend pharmacologic intervention for all postmenopausal women with a previous hip or vertebral fracture and a T-score in this range. The patient should follow a healthful lifestyle (good nutrition with adequate calcium and vitamin D, and appropriate weight-bearing exercise). Follow-Up: Consider a repeat BMD and Vertebral Fracture Assessment (VFA) exam in 2 years or sooner if medically necessary, to reassess this patient's status. Reported by: ALEIDA on 06/12/2024 11:28:00 AM. Reviewed, dictated and finalized at location A. KATTY
== END 2024-06-12 11:01 | disposition home or self-care (01) ==
LOC: ANHIMG 11:02
PROVIDERS: PCP Nurse Practitioner; Visit Provider Nurse Practitioner
DX: M85.852 Other specified disorders of bone density and structure, left thigh (principal); M81.0 Age-related osteoporosis without current pathological fracture; Z78.0 Asymptomatic menopausal state
CPT/HCPCS: 77080

== ENCOUNTER 2024-09-27 13:40 | Outpatient (CLI) | payer MEDICARE, SELFPAY ==
--- NOTE | ~2024-09-27 | MM_ITS ---
EXAMINATION: MM screening noé BI w kale HISTORY: Screening TECHNIQUE: Craniocaudal and mediolateral oblique 3-D tomosynthesis images were obtained and synthetic 2-D images were generated. CAD analysis was submitted and interpreted. COMPARISON: Comparison to multiple prior studies sequentially, with oldest reviewed study dated 03/2015. BREAST PARENCHYMAL COMPOSITION: Dense: The breasts are heterogeneously dense, which may obscure small masses FINDINGS: There is no evidence of suspicious mass, calcification, or architectural distortion to sugg est malignancy in either breast. There has been no suspicious interval change. IMPRESSION: 1. No mammographic evidence of malignancy. 2. Recommend routine screening mammography in one year. BI-RADS Category 1: Negative Reviewed, dictated and finalized at location B. [employer]
== END 2024-09-27 13:41 | disposition home or self-care (01) ==
LOC: MICIMG 13:41
PROVIDERS: PCP Nurse Practitioner; Visit Provider Nurse Practitioner
DX: Z12.31 Encounter for screening mammogram for malignant neoplasm of breast (principal)
CPT/HCPCS: 77063; 77067